=== PATIENT | male | born 1955 | race Two or more races ===

== ENCOUNTER 2016-09-03 20:31 | Emergency (ER) | payer BC, SELFPAY ==
[2016-09-03 20:45] VITALS: BP 135/70; PULSE 60; TEMP 97.9; BMI 29.0
[2016-09-03] MEDS ORDERED: CYCLOBENZAPRINE 10 MG TAB PO ONE (21:00)
[2016-09-03] MEDS ORDERED: PREDNISONE 20 MG TAB PO ONE (21:00)
[2016-09-03] MEDS ORDERED: HYDROCODONE 5 MG/ACETAMIN 325 MG TAB PO ONE (21:00)
--- NOTE | 2016-09-03 21:08 | EDPRACDOC ---
- General Information Chief Complaint: Back Pain Stated Complaint: LOW BACK PAIN/L LEG PAIN Time Seen by Provider: 09/03/16 21:00 Information Source: Patient, [employer] Mode Of Arrival: Car Home Medications: Home Medications Atorvastatin Calcium [Lipitor] 20 mg PO QHS 06/21/16 Ergocalciferol (Vitamin D2) [Vitamin D] 50,000 units PO WEEKLY 06/21/16 Losartan Potassium [Cozaar] 50 mg PO DAILY 06/21/16 Metformin HCl 500 mg PO BID 06/21/16 Montelukast Sodium [Singulair] 10 mg PO QHS 06/21/16 Pantoprazole Sodium [Protonix] 40 mg PO DAILY 06/21/16 Tamsulosin HCl [Flomax] 0.4 mg PO DAILY 06/21/16 Cyclobenzaprine HCl [Flexeril] 10 mg PO TID #14 tablet 09/03/16 Gabapentin 100 mg PO BID 09/03/16 Gabapentin 300 mg PO TID #30 cap 09/03/16 Oxycodone Immediate Release [Oxycodone Immediate Release (OxyIR)] 5 mg PO Q6H PRN #14 tab 09/03/16 Prednisone [Deltasone] 20 mg PO BID #12 tablet 09/03/16 Allergies/Adverse Reactions: Allergies Allergy/AdvReac Type Severity Reaction Status Date / Time No Known Allergies Allergy Verified 06/21/16 15:11 - History of Present Illness Onset: 2 weeks HPI: PT C/O LEFT LOWER BACK PAIN THAT RADIATES DOWN HIS LEFT LEG WITH NUMBNESS AND TINGLING HAS BEEN GOING ON FOR 2-3 WKS, WAS PLACED ON GABAPENTIN 100MG DAILY BY PCP. NO LOSS OF BLADDER OR BOWEL CONTROL AT THIS TIME. Pain Location: Reports: Left, Lumbar Pain Radiates To: Reports: Thigh, Buttock, Calf Pain Caused By: Reports: Spontaneous Circumstances: Reports: Unknown Relevant History: Reports: None Pain Severity: Reports: Moderate Pain Quality: Reports: Aching, Burning, Dull, Sharp Worsened By: Reports: Movement, Twisting, Walking Associated Signs and Symptoms: Reports: None ED Past Medical History - History Reviewed Yes Nurses notes reviewed and agree except as marked Travel Outside of [place] in the Last 3 Months?: No - Patient Medical History Cardiac History: Reports: Hypertension, Hypercholesterolemia GI/ History: Reports: Gastroesophageal Reflux Psychological History: Denies: Depression Systemic History: Reports: Diabetes Surgical History: Reports: Cholecystectomy - Social Medical History Smoking Status: Never smoker ETOH: None Substance Abuse: None Lives With: Spouse Lives In: Home EDM Review of Systems - Review of Systems ROS Negative Except as Marked: Yes All systems reviewed and were negative except as marked Constitutional: No Symptoms Reported. negative: Fever, Chills, Weakness, Fatigue, Loss of Appetite Eyes: No Symptoms Reported. negative: Redness, Blurred Vision, Double Vision, Discharge, Pain, Light Sensitive, Photophobia Ears: No Symptoms Reported. negative: Pain, Hearing Loss, Drainage, Ear Pulling Throat: No Symptoms Reported. negative: Pain, Swelling Nose: No Symptoms Reported. negative: Congestion, Bleeding, Discharge, Injection, Swelling, Deformity, Ecchymosis, Tender, Abrasion, Laceration Mouth: No Symptoms Reported. negative: Pain, Drooling Respiratory: No Symptoms Reported. negative: Cough, Brassy Cough, Barky Cough, Shortness of Breath, Wheezing, Hemoptysis Cardiovascular: No Symptoms Reported. negative: Chest Pain, Palpitations, Syncope, Edema, Orthopnea, PND, Skin Mottling, Cyanosis Gastrointestinal: No Symptoms Reported. negative: Pain, Constipation, Nausea, Vomiting, Diarrhea, Melena, Formula Intolerance Genitourinary: No Symptoms Reported. negative: Dysuria, Hematuria, Frequency, Discharge, Bleeding, Testicular Pain, Neurological: No Symptoms Reported. negative: Headache, Dizziness, Seizure, Numbness, Weakness, Speech Difficulty, Gait Difficulty Musculoskeletal: Back. negative: Arm, Ankle, Chestwall, Elbow, Forearm, Femur, Foot, Hand, Hip, Knee, Leg, Neck, Pelvis, Ribs, Shoulder, Wrist Integumentary: No Symptoms Reported. negative: Itching, Rash, Bruising, Wound Allergic/Immunologic: No Symptoms Reported. negative: Hives, Itching Hematologic: No Symptoms Reported. negative: Lymphadenopathy, Easy Bruising, Easy Bleeding Endocrine: No Symptoms Reported. negative: Weight Gain, Weight Loss Psychiatric: No Symptoms Reported. negative: Anxiety, Depression, Hallucinations, Insomnia, Suicidal - Physical Exam Constitutional: No apparent distress, Alert (Awake) Oriented to: Time, Person, Place Last recorded Vital Signs: Last Vital Signs Temp 97.9 F 09/03/16 20:44 Pulse 60 09/03/16 20:44 Resp 16 09/03/16 20:44 BP 135/70 09/03/16 20:44 Pulse Ox 96 09/03/16 20:44 Oxygen Pulse Oxygen Saturation 96 O2 Device Room Air Oxygen Flow Rate Fraction of Inspired Oxygen ( FIO2) - HEENT Head: Normal ( normocephalic) Eye Exam: Normal (PERRL, EOMI, Sclera white) Oropharynx: Normal (Pharynx:Moist without exudate,Gums-no swelling) Tympanic Membrane: Normal ENT EAC: Normal TMJ: Normal Nose: No Symptoms Reported (septum midline) Neck: Normal (FROM, trachea at midline) - Respiratory/Cardiovascular Respiratory: Normal - CTA (BBS clear to auscultation without adventitious sounds ) Cardiovascular: Normal (RRR without murmur, gallop or rub) - GI Auscultation: Normal (NABS) Palpation: Normal (Soft,No rebound or guarding, non distended) Tenderness: Non tender Martinez's Sign: Negative - Musculoskeletal Back: Normal (Non-Tender) Extremities: Normal (Normal tone, Pulses 2+ No cyanosis or edema, FROM) - Integumentary Skin: Normal, Warm, Dry Lymphatics: Normal (no adenopathy) - Neurologic Memory Impaired: Normal Motor Function: Normal (Normal tone, Pulses 2+ No cyanosis or edema, FROM) Cranial Nerve: Normal (CN II-X11 intact sensation, strength 5/5) Cerebellar: Normal Mood Description: Normal Perception: Normal ED Back Exam - Neurologic Motor Deficit: None (strength 5/5, sensation nl) Reflexes: Normal (CN II-X11 intact) - Musculoskeletal Cervical: Normal Thoracic: Normal Lumbar: Tender (MILD) Midline: Tender (MILD) Paraspinous: Tender (LEFT) Straight Leg Raise: Positive (30 DEGREES) Pelvis: Normal - Differential Diagnosis Musculoskeletal pain, Strain - Diagnostic Imaging LSPINE Image interpreted by: Radiologist IMPRESSION: No acute abnormality. Mild degenerative endplate changes, most prominent at L2. Decision Time to Discharge: 21:54 - Departure Disposition: Home Condition: Stable Final Diagnosis: Lumbar sprain, Acute low back pain, Lumbar radiculopathy Instructions: Thoracic (Lumbar) Strain, Acute Low Back Pain (ED), Lumbar Radiculopathy (ED) Education/Counseling Given To: Patient, Family Member Education/Counseling Given Regarding: Diagnosis, Treatment, Prognosis, Follow Up Referrals: Polly Carmen MD [Primary Care Provider] - One Week Vasu Sims MD [Staff Physician] - One Week Prescriptions: Cyclobenzaprine HCl [Flexeril] 10 mg PO TID #14 tablet Gabapentin 300 mg PO TID #30 cap Oxycodone Immediate Release [Oxycodone Immediate Release (OxyIR)] 5 mg PO Q6H PRN #14 tab PRN Reason: Pain Prednisone [Deltasone] 20 mg PO BID #12 tablet
--- NOTE | 2016-09-03 21:30 | DIRPT ---
CLINICAL DATA: Low back pain radiates to the left leg. EXAM: LUMBAR SPINE - COMPLETE 4+ VIEW COMPARISON: None. FINDINGS: Surgical clips in the right upper abdomen. Normal alignment of the lumbar spine. Negative for a pars defect. Sclerosis along the superior endplate of L2. Mild degenerative endplate changes at L3 and L4. IMPRESSION: No acute abnormality. Mild degenerative endplate changes, most prominent at L2. Electronically Signed By: Rakan Chavez M.D. On: 09/03/2016 21:27
== END 2016-09-03 22:10 | disposition home or self-care (01) ==
LOC: EDMC 20:31
DX: S33.5XXA Sprain of ligaments of lumbar spine, initial encounter (principal); X58.XXXA Exposure to other specified factors, initial encounter; M54.16 Radiculopathy, lumbar region; I10 Essential (primary) hypertension; E78.00 Pure hypercholesterolemia, unspecified; K21.9 Gastro-esophageal reflux disease without esophagitis; E11.9 Type 2 diabetes mellitus without complications; Z79.899 Other long term (current) drug therapy
CPT/HCPCS: 72110; 99284; J3490